=== PATIENT | female | born 1945 | race Caucasian/White ===

== ENCOUNTER → 2017-08-05 | Outpatient (CLI) | payer MEDICARE, OTHER ==
[2017-08-05 15:30] LABS: BUN/CREATININE RATIO 7.9 (6.0-26.0); CALCIUM 10.1 mg/dL (8.4-10.2); POTASSIUM 4.8 mmol/L (3.6-5.0)
== END ==
LOC: LAB 15:02
PROVIDERS: Family Medicine
DX: E66.9 Obesity, unspecified (principal); Z12.11 Encounter for screening for malignant neoplasm of colon

== ENCOUNTER → 2017-11-18 | Outpatient (CLI) | payer MEDICARE, OTHER | LOC: LAB 16:14 | DX: R68.89 Other general symptoms and signs (principal); Z88.7 Allergy status to serum and vaccine; Z88.8 Allergy status to other drugs, medicaments and biological substances; Z91.040 Latex allergy status ==

== ENCOUNTER → 2018-08-07 | Outpatient (CLI) | payer MEDICARE, OTHER | LOC: LAB 15:22 | DX: N89.8 Other specified noninflammatory disorders of vagina (principal); N93.9 Abnormal uterine and vaginal bleeding, unspecified ==

== ENCOUNTER → 2018-08-08 | Outpatient (CLI) | payer MEDICARE, OTHER | LOC: RAD 12:40 | DX: N85.00 Endometrial hyperplasia, unspecified (principal) ==

== ENCOUNTER → 2018-10-09 | Outpatient (CLI) | payer MEDICARE, OTHER ==
[~2018-10-09] VITALS: Ht 172.7 cm; Wt 113.6 kg
== END ==
LOC: AMSURD 09:53
DX: Z01.818 Encounter for other preprocedural examination (principal)

== ENCOUNTER 2019-03-15 11:41 | Emergency (ER) | payer MEDICARE, OTHER ==
[2019-03-15 14:29] VITALS: BP 169/68
== END 2019-03-15 13:56 | disposition home or self-care (01) ==
LOC: ED 11:41
DX: S91.012A Laceration without foreign body, left ankle, initial encounter (principal); Z88.8 Allergy status to other drugs, medicaments and biological substances; W30.89XA Contact with other specified agricultural machinery, initial encounter; Y92.79 Other farm location as the place of occurrence of the external cause

== ENCOUNTER → 2024-07-30 | Outpatient (CLI) | payer MEDICARE, OTHER ==
[2024-07-30 10:09] LABS: BASO # 0.05 K/mm3 (0.02-0.10); CALCIUM 9.5 mg/dL (8.3-10.5); EOS # 0.22 K/mm3 (0.04-0.40); EOS % 2.9 % (1.0-5.0); HEMATOCRIT 42.9 % (37.0-47.0); HEMOGLOBIN 13.5 g/dL (12.5-16.0); LYMPH# 1.62 K/mm3 (1.50-4.00); MEAN CELL VOLUME 97 fl (78-100); MEAN CORPUSCULAR HEMOGLOBIN 31 pg (27-31); MEAN CORPUSCULAR HGB CONC 32 g/dL (33-37); MEAN PLATELET VOLUME 9.6 fl (7.4-10.4); MONO # 0.78 K/mm3 (0.20-0.80); NEU # 4.79 K/mm3 (1.40-6.50); PLATELET COUNT 332 K/mm3 (130-400); RED BLOOD COUNT 4.41 M/mm3 (4.10-5.30); RED CELL DISTRIBUTION WIDTH 12.8 % (11.5-14.5); WHITE BLOOD COUNT 7.5 K/mm3 (4.8-10.8)
[2024-07-30 10:10] LABS: TOTAL PROTEIN 7.3 g/dL (6.2-8.1)
[2024-07-30 10:12] LABS: TOTAL BILIRUBIN 0.5 mg/dL (0.2-1.2)
== END ==
LOC: RAD 09:41 → LAB 09:41
PROVIDERS: Family Medicine
DX: Z13.820 Encounter for screening for osteoporosis (principal); Z12.39 Encounter for other screening for malignant neoplasm of breast; E78.5 Hyperlipidemia, unspecified; E55.9 Vitamin D deficiency, unspecified; I10 Essential (primary) hypertension; R51.9 Headache, unspecified

== ENCOUNTER → 2024-08-21 | Outpatient (CLI) | payer MEDICARE, OTHER | LOC: MAMMO 06:45 | DX: R92.8 Other abnormal and inconclusive findings on diagnostic imaging of breast (principal) ==

== ENCOUNTER 2025-01-11 15:20 | Emergency (ER) | payer MEDICARE, OTHER ==
[~2025-01-11] VITALS: Ht 172.7 cm; Wt 110.0 kg
[2025-01-11 15:47] LABS: BASO # 0.06 K/mm3 (0.02-0.10); EOS # 0.35 K/mm3 (0.04-0.40); HEMATOCRIT 40.9 % (37.0-47.0); LYMPH# 1.92 K/mm3 (1.50-4.00); MEAN CELL VOLUME 96 fl (78-100); MEAN CORPUSCULAR HEMOGLOBIN 31 pg (27-31); MEAN CORPUSCULAR HGB CONC 32 g/dL (33-37); MEAN PLATELET VOLUME 9.5 fl (7.4-10.4); MONO # 0.71 K/mm3 (0.20-0.80); NEU # 3.98 K/mm3 (1.40-6.50); PLATELET COUNT 278 K/mm3 (130-400); RED BLOOD COUNT 4.25 M/mm3 (4.10-5.30); RED CELL DISTRIBUTION WIDTH 12.9 % (11.5-14.5)
[2025-01-11 15:53] LABS: ALBUMIN 3.6 g/dL (3.4-4.8); SODIUM 142 mmol/L (136-145)
[2025-01-11 15:55] LABS: CALCIUM 8.9 mg/dL (8.3-10.5)
[2025-01-11 15:56] LABS: GLUCOSE 112 mg/dL (65-105)
[2025-01-11 15:57] LABS: CARBON DIOXIDE 24 mmol/L (23-31)
[2025-01-11 15:58] LABS: TOTAL BILIRUBIN 0.3 mg/dL (0.2-1.2)
[2025-01-11 16:01] LABS: AST-SGOT 16 U/L (5-34)
[2025-01-11 16:02] LABS: ALT/SGPT 12 U/L (0-55)
[2025-01-11 16:03] LABS: LIPASE 18 U/L (8-78)
[2025-01-11 16:12] LABS: TROPONIN-I < 0.030 ng/mL (0.00-0.033)
[2025-01-11 17:30] VITALS: BP 128/89
== END 2025-01-11 17:37 | disposition home or self-care (01) ==
LOC: ED 15:20
PROVIDERS: Family Medicine
DX: S06.9X9A Unspecified intracranial injury with loss of consciousness of unspecified duration, initial encounter (principal); R07.89 Other chest pain; H53.8 Other visual disturbances; E66.9 Obesity, unspecified; I49.3 Ventricular premature depolarization; Z91.040 Latex allergy status; V49.9XXA Car occupant (driver) (passenger) injured in unspecified traffic accident, initial encounter; Y92.410 Unspecified street and highway as the place of occurrence of the external cause
CPT/HCPCS: J7120